=== PATIENT | female | born 1975 | race Caucasian/White ===

== ENCOUNTER 2023-02-24 13:45 | Outpatient (CLI) | payer OTHER, SELFPAY ==
--- NOTE | 2023-02-24 13:40 | CRLHL7_ITS ---
For Patients: As a result of the Cures Act, medical imaging exams and procedure reports are released immediately into your electronic medical record. You may view this report before your referring provider. If you have questions, please contact your health care provider. BILATERAL SCREENING MAMMOGRAM WITH COMPUTER-AIDED DETECTION AND TOMOSYNTHESIS TECHNIQUE: CC and MLO views were obtained. These mammographic images have been obtained using full-field digital technique. These mammographic images were interpreted with the benefit of computer-aided detection. Breast Tomosynthesis was used in this interpretation. COMPARISON FILM: 02/10/22, 01/27/21, 11/29/19. FINDINGS: There are scattered areas of fibroglandular density IMPRESSION: There is no radiographic evidence for malignancy. ASSESSMENT: BI-RADS Category 1: Negative RECOMMENDATION: Routine screening mammogram in 1 year. A lay language report of this examination will be provided to the patient. Kalen Encarnacion M.D. Diagnostic Radiologist [email or web address] Transcribed: 2:32 p.mPhuc moulton/Dictated by: Kalen Encarnacion MD @ 02/27/2023 1:06:00 PM (Electronically Signed)
== END 2023-02-24 13:46 | disposition home or self-care (01) ==
LOC: MAMMO 13:46
PROVIDERS: PCP Physician Assistant Medical; Visit Provider Physician Assistant Medical
DX: Z12.31 Encounter for screening mammogram for malignant neoplasm of breast (principal)
CPT/HCPCS: 77063; 77067

== ENCOUNTER 2023-05-03 10:23 | Emergency (ER) | payer OTHER, SELFPAY ==
[2023-05-03 10:28] VITALS: BP 108/73; PULSE 72; RESP 16; TEMP 36.9; O2SAT 100
--- NOTE | 2023-05-03 11:22 | CRLHL7_ITS ---
For Patients: As a result of the Century Cures Act, medical imaging exams and procedure reports are released immediately into your electronic medical record. You may view this report before your referring provider. If you have questions, please contact your health care provider. Indication: Abdomen pain Technique: Abdomen 2 view. Comparison: None. Findings: Bowel: Bowel pattern is normal. The amount of colonic stool is moderately increased. Other: No sign of free air. No sign of soft tissue mass. No suspicious calcifications. Osseous structures are unremarkable for age. Artifactual densities overlie the lower pelvis the 3rd image. Impression: Moderately increased colonic stool burden suggesting constipation without mechanical obstruction. Dictated by Kalen Encarnacion MD @ 05/03/2023 12:33:38 PM (Electronically Signed)
--- NOTE | 2023-05-03 11:24 | ED.GENADULT ---
HPI - General Adult General Chief complaint: Abdominal Pain Stated complaint: Abdominal pain Time Seen by Provider: 05/03/23 10:43 History of Present Illness HPI narrative: Patient is a 47-year-old female developed abdominal pain last night worse when she is lying down. She reports she has had intermittent trouble constipation she has been very constipated lately although she did have a bowel movement yesterday. She has had right upper quadrant gallbladder removal in the past. Still has her appendix. Has not had a fever, chills, dysuria hematuria, no diarrhea. Her bowel much past yesterday was hard. Patient denies any peritoneal signs at this time. She has not tried any pain medicine. She was seen at the clinic and sent to the ER for imaging. Related Data Home Medications Medication Instructions Recorded Confirmed acetaminophen [Tylenol] PO 05/03/23 05/03/23 fexofenadine [Yessenia Allergy] PO 05/03/23 05/03/23 Allergies Allergy/AdvReac Type Severity Reaction Status Date / Time No Known Drug Allergies Allergy Verified 05/03/23 09:06 Review of Systems Status of ROS: Reports: 6 or more systems reviewed and unremarkable except as noted in History and below [facility] Social History Smoking Status: Never smoker Do you use any of these nicotine containing products: None Second hand tobacco smoke exposure: No How often do you have a drink containing alcohol: never AUDIT-C Alcohol total score: 0 Non-prescribed substance use: denies use service: No Exam Narrative: Exam Narrative: Objective: Vital signs unremarkable in general patient apparent distress ambulating around the room Pulses regular abdomen is benign soft mildly tender in the epigastrium and right and left lateral quadrants Heart is rate and rhythm without murmur Extremities are no edema neurologic nonfocal Const: Vital Signs, click to edit/add: Vital Signs - 24 hr 05/03/23 10:28 Temperature 98.5 F Pulse Rate [Pulse Oximeter] 72 Respiratory Rate 16 Blood Pressure [Ri ght Upper Arm] 108/73 Pulse Oximetry 100 Oxygen Delivery Me thod Room Air Course Vital Signs Vital signs: Initial Vital Signs Temperature 98.5 F 05/03/23 10:28 Temperature Source Temporal Artery Scan 05/03/23 10:28 Pulse Rate 72 05/03/23 10:28 Pulse Rhythm Regular 05/03/23 10:28 Respiratory Rate 16 05/03/23 10:28 Blood Pressure 108/73 05/03/23 10:28 Blood Pressure Mean 84 05/03/23 10:28 Pulse Oximetry 100 05/03/23 10:28 Oxygen Delivery Method Room Air 05/03/23 10:28 Vital Signs Temperature 98.5 F 05/03/23 10:28 Pulse Rate 72 05/03/23 10:28 Respiratory Rate 16 05/03/23 10:28 Blood Pressure 108/73 05/03/23 10:28 Pulse Oximetry 100 05/03/23 10:28 Oxygen Delivery Method Room Air 05/03/23 10:28 Temperature 98.5 F 05/03/23 10:28 Pulse Rate 72 05/03/23 10:28 Respiratory Rate 16 05/03/23 10:28 Blood Pressure 108/73 05/03/23 10:28 Pulse Oximetry 100 05/03/23 10:28 Oxygen Delivery Method Room Air 05/03/23 10:28 Medical Decision Making MDM Narrative Medical decision making narrative: Patient is a 47-year-old female with history of constipation with increasing constipation recently, now with abdominal pain. Does not have any worrisome symptoms of fever, chills, dysuria, diarrhea, vomiting. At this point I suspect this may be related to constipation as well. In terms of her pain. I think we should get a flat and upright abdominal x-ray, lab studies. If these are showing constipation then I think MiraLax for home would be reasonable and follow up with primary care as needed please see addendum dictation. Addendum: The patient's x-ray read by me shows constipation, confirmed per Radiology. Her laboratory studies including white count hemoglobin CRP are all unremarkable or ER profile is unremarkable as well. I suspect this is related constipation her abdominal pain, recommend MiraLax at home. Recheck with regular doctor next 2-3 days, return to ED sooner problems concerns or recurrence. Lab Data Labs: Lab Results 05/03/23 Range/Units 11:40 WBC 8.28 (4.50-11.00) K/uL RBC 4.77 (4.00-5.20) m/uL Hgb 14.2 (12.0-16.0) gm/dL Hct 42.1 (33.0-51.0) % MCV 88 (80-100) fL MCH 30 (26-34) pg MCHC 34 (32-36) gm/dL RDW Coeff of [place] 12.3 (11.5-15.5) % Plt Count 279 (140-440) K/uL Neut % (Auto) 61.9 (42.0-72.0) % Lymph % (Auto) 27.2 (20-44) % Bond % (Auto) 8.5 (0.0-11.0) % Eos % (Auto) 1.4 (0.0-7.0) % Baso % (Auto) 0.4 (0.0-3.0) % Neut # (Auto) 5.13 (1.7-7.0) K/uL Lymph # (Auto) 2.25 (0.90-2.90) K/uL Bond # (Auto) 0.70 (0.00-0.90) K/UL Eos # (Auto) 0.12 (0.00-0.50) K/uL Baso # (Auto) 0.03 (0.00-0.30) K/uL Sodium 140 (135-149) mmol/L Potassium 4.6 (3.6-5.1) mmol/L Chloride 105 (96-114) mmol/L Carbon Dioxide 29 (20-32) mmol/L BUN 10 (5-24) mg/dL Creatinine 0.7 (0.5-1.5) mg/dL Estimated GFR 106 ml/min Glucose 107 (60-115) mg/dL Calcium 10.0 (8.4-10.6) mg/dL C-Reactive Protein 0.6 (0.5-1.0) mg/dL Discharge Plan Discharge Clinical Impression: Abdominal pain, Constipation Patient Disposition: Home, Self-Care Condition: Stable Additional Instructions: Activity as tolerated, Tylenol as needed, MiraLax 1 capful in water 3 times a day until bowel movement, then twice a day for 2 days and then once a day for a week. Eat fiber containing food, recheck with primary care in 2-3 days as needed, return to ED with concerns, problems, or worsening symptoms. Activity Level: No Restrictions Discharge Diet: High Fiber Prescriptions: No Action fexofenadine [Yessenia Allergy] PO acetaminophen [Tylenol] PO Follow Up/Referrals: Mame Diaz PA-C [Primary Care Provider] - Stand Alone Forms: [employer] Info Instructions
[2023-05-03 11:46] LABS: Basophils Absolute Auto 0.03 K/uL (0.00-0.30); Basophils Percent Auto 0.4 % (0.0-3.0); Eosinophils Absolute Auto 0.12 K/uL (0.00-0.50); Eosinophils Percent Auto 1.4 % (0.0-7.0); Hematocrit 42.1 % (33.0-51.0); Hemoglobin* 14.2 gm/dL (12.0-16.0); Immature Granulocytes Abs Auto 0.05 K/uL (0.00-0.30); Immature Granulocytes Pct Auto 0.6 %; Lymphocytes Absolute Auto 2.25 K/uL (0.90-2.90); Lymphocytes Percent Auto 27.2 % (20-44); Mean Corpuscular HGB Conc 34 gm/dL (32-36); Mean Corpuscular Hemoglobin 30 pg (26-34); Mean Corpuscular Volume 88 fL (80-100); Monocytes Percent Auto 8.5 % (0.0-11.0); Neutrophils Absolute Auto 5.13 K/uL (1.7-7.0); Neutrophils Percent Auto 61.9 % (42.0-72.0); Platelet Count* 279 K/uL (140-440); RDW Coefficient of Variation % 12.3 % (11.5-15.5); Red Blood Count 4.77 m/uL (4.00-5.20); White Blood Count* 8.28 K/uL (4.50-11.00)
[2023-05-03 11:49] LABS: Slide Review Reflex No
[2023-05-03 12:23] LABS: Chloride* 105 mmol/L (96-114)
[2023-05-03 12:24] LABS: Potassium* 4.6 mmol/L (3.6-5.1); Sodium* 140 mmol/L (135-149)
[2023-05-03 12:27] LABS: Blood Urea Nitrogen* 10 mg/dL (5-24); Carbon Dioxide* 29 mmol/L (20-32); Creatinine* 0.7 mg/dL (0.5-1.5); Estimated Glomerular Filt Rate 106 ml/min
[2023-05-03 12:28] LABS: Glucose* 107 mg/dL (60-115)
[2023-05-03 12:30] LABS: C Reactive Protein* 0.6 mg/dL (0.5-1.0)
--- NOTE | 2023-05-04 01:13 | ED.NURSE ---
Addendum entered by Ainsley Govea RN 05/04/23 01:25: DEEPALI Acquired from [facility] Original Note: In patients chart to send medical records to [facility].
== END 2023-05-03 12:42 | disposition home or self-care (01) ==
PROVIDERS: Emergency Provider Family Medicine; PCP Physician Assistant Medical
DX: K59.00 Constipation, unspecified (principal); R10.9 Unspecified abdominal pain
CPT/HCPCS: 36415; 74019; 80048; 85025; 86140; 99284

== ENCOUNTER 2023-09-14 08:25 | Outpatient (CLI) | payer OTHER, SELFPAY | END 2023-09-14 08:26 | disposition home or self-care (01) | LOC: FRMREF 08:27 | PROVIDERS: PCP Physician Assistant Medical; Visit Provider Physician Assistant Medical | DX: Z00.00 Encounter for general adult medical examination without abnormal findings (principal); N92.6 Irregular menstruation, unspecified; Z13.6 Encounter for screening for cardiovascular disorders | CPT/HCPCS: 80048; 80061; 84443 ==

== ENCOUNTER 2024-03-20 07:56 | Outpatient (CLI) | payer OTHER, SELFPAY ==
--- NOTE | 2024-03-20 08:15 | MM_ITS ---
Patient: HANNY SINGER Facility:?[facility] Patient ID:?[id number] Site Patient ID:?[id number] Site :?[id number] Study:?XRay-Breast Bilateral 3D W/CAD-03/20/2024 8:35:31 AM Ordering Physician:Mame Olsen Final Report: BILATERAL SCREENING MAMMOGRAM WITH COMPUTER-AIDED DETECTION AND TOMOSYNTHESIS TECHNIQUE: CC and MLO views were obtained. These mammographic images have been obtained using full-field digital technique. These mammographic images were interpreted with the benefit of computer-aided detection. Breast Tomosynthesis was used in this interpretation. COMPARISON FILM: 02/24/23, 02/10/22, 01/27/21. FINDINGS: There are scattered areas of fibroglandular density. IMPRESSION: There is no radiographic evidence for malignancy. ASSESSMENT: BI-RADS Category 2: Benign RECOMMENDATION: Routine screening mammogram in 1 year. A lay language report of this examination will be provided to the patient. Kalen Encarnacion M.D. Diagnostic Radiologist [email or web address] DSM/sp R& Transcribed: 5:36 p.m. SP/Dictated by: Kalen Encarnacion MD @ 03/20/2024 9:25:00 AM Signed by:?Kalen Encarnacion MD @03/20/2024 6:52:38 PM (Electronic Signature)
== END 2024-03-20 07:57 | disposition home or self-care (01) ==
LOC: MAMMO 07:57
PROVIDERS: PCP Physician Assistant Medical; Visit Provider Physician Assistant Medical
DX: Z12.31 Encounter for screening mammogram for malignant neoplasm of breast (principal)
CPT/HCPCS: 77063; 77067

== ENCOUNTER 2024-11-26 10:13 | Outpatient (CLI) | payer OTHER, SELFPAY | END 2024-11-26 10:14 | disposition home or self-care (01) | PROVIDERS: PCP Physician Assistant Medical; Visit Provider Emergency Medicine | DX: R53.83 Other fatigue (principal); Z13.228 Encounter for screening for other metabolic disorders; Z13.21 Encounter for screening for nutritional disorder; Z13.29 Encounter for screening for other suspected endocrine disorder | CPT/HCPCS: 80053; 82607; 84443 ==

== ENCOUNTER 2025-02-25 09:05 | Outpatient (CLI) | payer OTHER, SELFPAY | END 2025-02-25 09:06 | disposition home or self-care (01) | LOC: FRMREF 09:05 | PROVIDERS: PCP Physician Assistant Medical; Visit Provider Physician Assistant Medical | DX: R21 Rash and other nonspecific skin eruption (principal); Z13.6 Encounter for screening for cardiovascular disorders; Z13.29 Encounter for screening for other suspected endocrine disorder | CPT/HCPCS: 80053; 80061; 84443; 86038 ==

== ENCOUNTER 2025-06-10 09:02 | Outpatient (CLI) | payer OTHER, SELFPAY ==
--- NOTE | 2025-06-10 09:15 | CRLHL7_ITS ---
For Patients: As a result of the Century Cures Act, medical imaging exams and procedure reports are released immediately into your electronic medical record. You may view this report before your referring provider. If you have questions, please contact your health care provider. INDICATION: BILATERAL SCREENING MAMMOGRAM, ASYMPTOMATIC 50 Y/O FEMALE COMPARISON: 03/20/2024, 02/24/2023, 02/10/2022 TECHNIQUE: Digital mammogram in CC and MLO projections including computer-aided detection (CAD) and tomosynthesis. BREAST COMPOSITION: There are scattered areas of fibroglandular density. FINDINGS: No suspicious findings. ASSESSMENT: BI-RADS 1 Negative RECOMMENDATION: Annual screening mammogram. A lay language report of this examination will be provided to the patient. Dictated by: Abigail Ortez MD @ 06/12/2025 09:27:41 (Electronically Signed)
== END 2025-06-10 09:03 | disposition home or self-care (01) ==
LOC: MAMMO 09:02
PROVIDERS: PCP Physician Assistant Medical; Visit Provider Physician Assistant Medical
DX: Z12.31 Encounter for screening mammogram for malignant neoplasm of breast (principal)
CPT/HCPCS: 77063; 77067